=== PATIENT | female | born 1935 | race Asian ===

== ENCOUNTER 2018-07-08 08:20 | Emergency (ER) | payer MEDICARE, BC ==
[2018-07-08 08:53] LABS: ADD MAN DIFF? NO
[2018-07-08 09:02] LABS: BASOPHILS % 0.6 % (0.0-2.0); EOSINOPHILS # 0.3 10^3/ul (0.0-0.5); EOSINOPHILS % 3.6 % (0.0-7.0); LYMPHOCYTES # 1.5 10^3/ul (0.8-2.9); LYMPHOCYTES % 20.2 % (15.0-51.0); MEAN CORPUSCULAR HEMOGLOBIN 29.1 pg (29.0-33.0); MEAN CORPUSCULAR HGB CONC 32.4 g/dl (32.0-37.0); MEAN CORPUSCULAR VOLUME 89.8 fl (82.0-101.0); MEAN PLATELET VOLUME 10.7 fl (7.4-10.4); MONOCYTE # 0.5 10^3/ul (0.3-0.9); MONOCYTES % 7.5 % (0.0-11.0); NEUTROPHIL # 4.9 10^3/ul (1.6-7.5); NEUTROPHILS % 67.5 % (39.0-77.0); PLATELET COUNT 206 10^3/UL (140-415); RED BLOOD COUNT 4.12 10^6/ul (4.20-5.40); RED CELL DISTRIBUTION WIDTH 13.5 % (11.5-14.5)
[2018-07-08 09:02] LABS: WHITE BLOOD COUNT 7.2 10^3/ul (4.8-10.8)
[2018-07-08] MEDS: DIPHTH/TET/ACEL PERTUSS (ADULT) 0.5 ML VIAL IM* (09:10)
[2018-07-08 09:12] LABS: INR 0.93; PROTIME 12.6 Sec (11.9-14.9)
[2018-07-08 09:13] LABS: PARTIAL THROMBOPLASTIN TIME 40.4 Sec (23.0-35.0)
[2018-07-08 09:17] LABS: ANION GAP 10 (8-16); BLOOD UREA NITROGEN 19 mg/dl (7-20); CALCIUM 9.4 mg/dl (8.4-10.2); CARBON DIOXIDE 29 mmol/L (21-31); CHLORIDE 106 mmol/L (97-110); CREATININE 0.57 mg/dl (0.44-1.00); GLUCOSE 117 mg/dl (70-220); POTASSIUM 4.6 mmol/L (3.5-5.1); SODIUM 140 mmol/L (135-144)
[2018-07-08 10:17] LABS: TROPONIN-I < 0.012 ng/ml (0.000-0.120)
== END 2018-07-08 11:58 | disposition home or self-care (01) ==
LOC: E/R 08:20
DX: S01.01XA Laceration without foreign body of scalp, initial encounter (principal); R55 Syncope and collapse; W01.0XXA Fall on same level from slipping, tripping and stumbling without subsequent striking against object, initial encounter; Y92.9 Unspecified place or not applicable; Z23 Encounter for immunization
CPT/HCPCS: 70450; 72125; 73110-RT; 80048; 84484; 85025; 85610; 85730; 90471; 90715; 93005; 99285-25

== ENCOUNTER 2019-01-04 14:40 | Observation (INO) | payer BC, MEDICARE ==
[2019-01-04 15:56] LABS: ADD MAN DIFF? NO
[2019-01-04] MEDS: KETOROLAC 15 MG INJ IV (15:56)
[2019-01-04] MEDS: SOD CHLORIDE 0.9% 1,000 ML IV (15:56)
[2019-01-04 15:58] LABS: BASOPHILS % 0.4 % (0.0-2.0); EOSINOPHILS # 0.4 10^3/ul (0.0-0.5); EOSINOPHILS % 5.1 % (0.0-7.0); HEMATOCRIT 37.1 % (37.0-47.0); HEMOGLOBIN 12.2 g/dl (12.0-16.0); LYMPHOCYTES # 2.1 10^3/ul (0.8-2.9); LYMPHOCYTES % 30.1 % (15.0-51.0); MEAN CORPUSCULAR HEMOGLOBIN 29.6 pg (29.0-33.0); MEAN CORPUSCULAR HGB CONC 32.9 g/dl (32.0-37.0); MEAN PLATELET VOLUME 10.4 fl (7.4-10.4); MONOCYTE # 0.6 10^3/ul (0.3-0.9); MONOCYTES % 8.1 % (0.0-11.0); NEUTROPHIL # 3.9 10^3/ul (1.6-7.5); NEUTROPHILS % 55.7 % (39.0-77.0); PLATELET COUNT 214 10^3/UL (140-415); RED BLOOD COUNT 4.12 10^6/ul (4.20-5.40); RED CELL DISTRIBUTION WIDTH 13.2 % (11.5-14.5)
[2019-01-04 15:58] LABS: WHITE BLOOD COUNT 7.1 10^3/ul (4.8-10.8)
[2019-01-04 16:18] LABS: ALANINE AMINOTRANSFERASE 10 IU/L (13-69); ALBUMIN 4.4 g/dl (3.3-4.9); ALBUMIN/GLOBULIN RATIO 1.22; ALKALINE PHOSPHATASE 73 IU/L (42-121); ANION GAP 9 (5-13); ASPARTATE AMINO TRANSFERASE 25 IU/L (15-46); BILIRUBIN,INDIRECT 0.4 mg/dl (0-1.1); BILIRUBIN,TOTAL 0.4 mg/dl (0.2-1.3); BLOOD UREA NITROGEN 23 mg/dl (7-20); CALCIUM 9.7 mg/dl (8.4-10.2); CARBON DIOXIDE 32 mmol/L (21-31); CHLORIDE 98 mmol/L (97-110); CREATININE 0.81 mg/dl (0.44-1.00); GLUCOSE 137 mg/dl (70-220); LIPASE 109 U/L (23-300); POTASSIUM 5.5 mmol/L (3.5-5.1); SODIUM 139 mmol/L (135-144)
[2019-01-04 16:28] LABS: TROPONIN-I < 0.012 ng/ml (0.000-0.120)
[2019-01-04] MEDS: ALBUTEROL 0.083% (NEB) 2.5 MG/3 ML AMP HHN ×2 (16:55)
[2019-01-04 17:51] LABS: ADD UMIC YES; UR ASCORBIC ACID NEGATIVE (NEGATIVE); UR BACTERIA MANY /HPF (NONE SEEN); UR BILIRUBIN (Dip) NEGATIVE (NEGATIVE); UR BLOOD (Dip) NEGATIVE (NEGATIVE); UR CLARITY CLEAR (CLEAR); UR COLOR YELLOW (YELLOW); UR GLUCOSE (Dip) NEGATIVE (NEGATIVE); UR KETONES (Dip) NEGATIVE (NEGATIVE); UR LEUKOCYTE ESTERASE (Dip) 2+ Leu/ul (NEGATIVE); UR MUCUS FEW /HPF (NONE SEEN); UR NITRITE (Dip) POSITIVE (NEGATIVE); UR RBC 1 /HPF (0-5); UR SPECIFIC GRAVITY (Dip) 1.012 (1.003-1.030); UR TOTAL PROTEIN (Dip) NEGATIVE (NEGATIVE); UR UROBILINOGEN (Dip) NEGATIVE (NEGATIVE); UR WBC 28 /HPF (0-5)
[2019-01-04] MEDS: CEFTRIAXONE 1 GM/50 ML (PMX) 50 ML IVPB (18:54)
[2019-01-04] MEDS ORDERED: HYDROCODONE/APAP (5/325) TAB PO (19:00)
[2019-01-04] MEDS ORDERED: NACL 0.9% 3 ML SYG IV (19:00)
[2019-01-04] MEDS ORDERED: ACETAMINOPHEN 325 MG TAB PO (19:00)
[2019-01-04] MEDS ORDERED: ONDANSETRON 4 MG INJ IV (19:00)
[2019-01-04 21:46] LABS: ANION GAP 9 (5-13); BLOOD UREA NITROGEN 22 mg/dl (7-20); CALCIUM 9.1 mg/dl (8.4-10.2); CARBON DIOXIDE 28 mmol/L (21-31); CHLORIDE 101 mmol/L (97-110); GLUCOSE 122 mg/dl (70-220); POTASSIUM 3.9 mmol/L (3.5-5.1); SODIUM 138 mmol/L (135-144)
[2019-01-04] MEDS: CARBIDOPA/LEVODOPA (10/100) TAB PO (23:30)
[2019-01-05] MEDS: CARBIDOPA/LEVODOPA (10/100) TAB PO ×5 (03:28→21:12)
[2019-01-05 05:44] LABS: ADD MAN DIFF? NO
[2019-01-05 05:52] LABS: WHITE BLOOD COUNT 5.8 10^3/ul (4.8-10.8)
[2019-01-05 05:52] LABS: BASOPHILS % 0.5 % (0.0-2.0); EOSINOPHILS # 0.2 10^3/ul (0.0-0.5); EOSINOPHILS % 4.1 % (0.0-7.0); HEMATOCRIT 34.7 % (37.0-47.0); HEMOGLOBIN 11.3 g/dl (12.0-16.0); LYMPHOCYTES # 1.6 10^3/ul (0.8-2.9); LYMPHOCYTES % 28.1 % (15.0-51.0); MEAN CORPUSCULAR HEMOGLOBIN 28.8 pg (29.0-33.0); MEAN CORPUSCULAR HGB CONC 32.6 g/dl (32.0-37.0); MEAN CORPUSCULAR VOLUME 88.5 fl (82.0-101.0); MEAN PLATELET VOLUME 10.8 fl (7.4-10.4); MONOCYTE # 0.5 10^3/ul (0.3-0.9); MONOCYTES % 7.9 % (0.0-11.0); NEUTROPHIL # 3.4 10^3/ul (1.6-7.5); NEUTROPHILS % 58.7 % (39.0-77.0); PLATELET COUNT 181 10^3/UL (140-415); RED BLOOD COUNT 3.92 10^6/ul (4.20-5.40); RED CELL DISTRIBUTION WIDTH 13.2 % (11.5-14.5)
[2019-01-05 06:29] LABS: ALANINE AMINOTRANSFERASE 12 IU/L (13-69); ALBUMIN 3.6 g/dl (3.3-4.9); ALBUMIN/GLOBULIN RATIO 1.09; ALKALINE PHOSPHATASE 66 IU/L (42-121); ANION GAP 6 (5-13); ASPARTATE AMINO TRANSFERASE 21 IU/L (15-46); BILIRUBIN,INDIRECT 0.6 mg/dl (0-1.1); BILIRUBIN,TOTAL 0.6 mg/dl (0.2-1.3); BLOOD UREA NITROGEN 18 mg/dl (7-20); CARBON DIOXIDE 28 mmol/L (21-31); CHLORIDE 105 mmol/L (97-110); CREATININE 0.57 mg/dl (0.44-1.00); GLUCOSE 115 mg/dl (70-220); POTASSIUM 3.9 mmol/L (3.5-5.1); SODIUM 139 mmol/L (135-144); TOTAL PROTEIN 6.9 g/dl (6.1-8.1)
[2019-01-05 06:35] LABS: HEMOGLOBIN A1C 6.2 % (0-5.9)
[2019-01-05] MEDS: ATENOLOL 25 MG TAB PO (10:36)
[2019-01-05] MEDS: GEMFIBROZIL 600 MG TAB PO ×2 (13:00→21:12)
[2019-01-05] MEDS: RASAGILINE MESYLATE 1 MG TAB PO (13:02)
[2019-01-06] MEDS: RASAGILINE MESYLATE 1 MG TAB PO (08:24)
[2019-01-06] MEDS: GEMFIBROZIL 600 MG TAB PO ×2 (08:24→21:56)
[2019-01-06] MEDS: ATENOLOL 25 MG TAB PO (08:25)
[2019-01-06] MEDS: ENOXAPARIN 30 MG/0.3 ML SYG SC (08:26)
[2019-01-06] MEDS: CARBIDOPA/LEVODOPA (10/100) TAB PO ×4 (10:01→21:56)
[2019-01-07] MEDS: RASAGILINE MESYLATE 1 MG TAB PO (08:36)
[2019-01-07] MEDS: GEMFIBROZIL 600 MG TAB PO (08:37)
[2019-01-07] MEDS: CARBIDOPA/LEVODOPA (10/100) TAB PO (08:37)
[2019-01-07] MEDS: ATENOLOL 25 MG TAB PO (08:38)
[2019-01-07] MEDS: ENOXAPARIN 30 MG/0.3 ML SYG SC (08:40)
== END 2019-01-07 12:11 | disposition home health service (06) ==
LOC: E/R 14:40 → 2NE 19:42
DX: N30.00 Acute cystitis without hematuria (principal); S49.91XA Unspecified injury of right shoulder and upper arm, initial encounter; W19.XXXA Unspecified fall, initial encounter; Y92.129 Unspecified place in nursing home as the place of occurrence of the external cause; G20 Parkinson's disease; E87.5 Hyperkalemia; R62.7 Adult failure to thrive; M19.90 Unspecified osteoarthritis, unspecified site; I10 Essential (primary) hypertension; Z90.710 Acquired absence of both cervix and uterus; K80.50 Calculus of bile duct without cholangitis or cholecystitis without obstruction; Z86.73 Personal history of transient ischemic attack (TIA), and cerebral infarction without residual deficits
CPT/HCPCS: 36415; 70450; 71045; 72170; 73030-RT; 80048; 80053; 81001; 83036; 83690; 83735; 84484; 85025; 87086; 93005; 94664; 96374; 96375; 97110; 97116; 97161; 97530; 99285-25

== ENCOUNTER 2019-05-31 18:40 | Emergency (ER) | payer BC ==
[2019-05-31 21:09] LABS: ADD MAN DIFF? NO
[2019-05-31 21:11] LABS: BASOPHIL # 0.1 10^3/ul (0.0-0.1); BASOPHILS % 0.6 % (0.0-2.0); EOSINOPHILS # 0.4 10^3/ul (0.0-0.5); EOSINOPHILS % 5.1 % (0.0-7.0); HEMATOCRIT 38.2 % (37.0-47.0); HEMOGLOBIN 12.1 g/dl (12.0-16.0); LYMPHOCYTES # 2.9 10^3/ul (0.8-2.9); LYMPHOCYTES % 34.8 % (15.0-51.0); MEAN CORPUSCULAR HEMOGLOBIN 28.5 pg (29.0-33.0); MEAN CORPUSCULAR HGB CONC 31.7 g/dl (32.0-37.0); MEAN CORPUSCULAR VOLUME 90.1 fl (82.0-101.0); MEAN PLATELET VOLUME 10.5 fl (7.4-10.4); MONOCYTE # 0.6 10^3/ul (0.3-0.9); NEUTROPHIL # 4.4 10^3/ul (1.6-7.5); NEUTROPHILS % 51.9 % (39.0-77.0); PLATELET COUNT 219 10^3/UL (140-415); RED BLOOD COUNT 4.24 10^6/ul (4.20-5.40); RED CELL DISTRIBUTION WIDTH 13.2 % (11.5-14.5)
[2019-05-31 21:11] LABS: WHITE BLOOD COUNT 8.4 10^3/ul (4.8-10.8)
[2019-05-31 21:30] LABS: ANION GAP 6 (5-13); BLOOD UREA NITROGEN 25 mg/dl (7-20); CALCIUM 9.5 mg/dl (8.4-10.2); CARBON DIOXIDE 29 mmol/L (21-31); CHLORIDE 100 mmol/L (97-110); CREATININE 0.75 mg/dl (0.44-1.00); GLUCOSE 114 mg/dl (70-220); POTASSIUM 4.6 mmol/L (3.5-5.1); SODIUM 135 mmol/L (135-144)
== END 2019-05-31 22:35 | disposition home or self-care (01) ==
LOC: E/R 18:40
DX: I87.2 Venous insufficiency (chronic) (peripheral) (principal); G20 Parkinson's disease
CPT/HCPCS: 80048; 85025; 93970; 99284-25